=== PATIENT | male | born 1965 | race Caucasian/White ===

== ENCOUNTER → 2021-08-13 | Outpatient (CLI) | payer OTHER ==
--- NOTE | 2021-08-13 11:12 | KCIC ---
AP and Lateral Views of the Chest 08/13/2021 10:16 AM Indication: Left rib pain following fall Findings: Mild elevation of the right hemidiaphragm is seen with minimal underlying atelectasis. No o ther focal infiltrate is seen. There is no evidence of pneumothorax or pleural effusion. No acute oss eous abnormalities are identified. Impression: 1. Mild elevation of the right hemidiaphragm with mild underlying atelectasis 2. No other acute cardiopulmonary process is identified. Electronically signed by: Pierce Castillo MD (08/13/2021 11:09 AM) [id number]
--- NOTE | 2021-08-13 13:02 | KCIC ---
3 views left RIBS 08/13/2021 INDICATION: Left-sided chest pain following fall 1 week ago COMPARISON STUDY: Chest radiograph, earlier today Discussion: There is a probable nondisplaced fracture involving the lateral aspect of the left sevent h rib. No other fractures are identified. No acute soft tissue changes are seen. No other acute osseo us changes are seen. IMPRESSION: Probable nondisplaced fracture, lateral aspect left seventh rib Electronically signed by: Pierce Castillo MD (08/13/2021 1:00 PM) [id number]
== END ==
LOC: KCIC 10:13
PROVIDERS: ATTEND Family Medicine
DX: J98.6 Disorders of diaphragm (principal); J98.11 Atelectasis; W19.XXXA Unspecified fall, initial encounter
CPT/HCPCS: 71046; 71100